=== PATIENT | male | born 1990 | race Caucasian/White ===

== ENCOUNTER 2021-03-06 08:09 | Emergency (ER) | payer OTHER ==
[~2021-03-06] VITALS: Ht 180.3 cm; Wt 100.8 kg
[2021-03-06] MEDS ORDERED: MORPHINE SULFATE 4 MG/ML DISP.SYRIN. IV ONE (08:30)
[2021-03-06] MEDS ORDERED: IV NORMAL SALINE 1,000ML 1,000 ML IV ONE (08:30)
[2021-03-06] MEDS ORDERED: IOHEXOL 300 MG/ML 75 ML VIAL. IV ONE (08:30)
[2021-03-06] MEDS ORDERED: ONDANSETRON PF 4 MG/2 ML VIAL. IVP ONE (08:30)
--- NOTE | 2021-03-06 08:52 | PHYS DOC ---
General Adult EDM: Chief Complaint: MULTIPLE COMPLAINTS HPI: HPI: Patient is a 30-year-old male coming in for low back pain after doing a lift in his PT training yesterday. Patient states he thinks he has back over urged and is looking for a "pop". Has pain radiating down both legs. Has a history of disc disease and occasional sciatica. Also complaining of right testicular soreness. States is sensitive to touch and feels like it is a little bit swollen. Denies any dysuria, hematuria, or penile discharge. Has a history of a "infection in the tubes" of his testicle in the past. Sexually active with one partner. Denies any systemic complaints. Review of Systems: Review of Systems: All other systems within normal limits except for as noted in the HPI Current Medications: Current Meds: Current Medications Medications (Trade) Dose Ordered Sig/Yocasta Start Time Stop Time Status Last Admin Dose Admin Iohexol (Omnipaque 300 Mg/ml) 75 ml 1X ONCE 03/06/21 08:30 03/06/21 08:30 DC Morphine Sulfate (Morphine 4mg Syringe) 4 mg 1X ONCE 03/06/21 08:30 03/06/21 08:30 DC Ondansetron HCl (Zofran) 4 mg 1X ONCE 03/06/21 08:30 03/06/21 08:30 DC Sodium Chloride 1,000 ml @ 1,000 mls/hr 1X ONCE 03/06/21 08:30 03/06/21 08:30 DC Allergies: Allergies: Allergies Coded Allergies Type Severity Reaction Last Updated Verified No Known Drug Allergies 03/06/21 No Physical Exam: PE: Constitutional: Well developed, well nourished, no acute distress, non-toxic appearance. [] HENT: Normocephalic, atraumatic, bilateral external ears normal, nose normal. [] Eyes: PERRLA, conjunctiva normal, no discharge. [] Neck: No rigidity, supple, no stridor. [] Cardiovascular: Regular rate and rhythm, brisk cap refill [] Lungs & Thorax: Non labored symmetric respirations, no tachypnea or respiratory distress [] Abdomen: Soft, nondistended, no hernias palpated, normal testicular exam except for tenderness over right epididymis. No scrotal erythema or swelling Skin: Warm, dry, no erythema, no rash. [] Back: Unremarkable,, no step-off deformities, point tenderness over L4 and L5 Extremities: No deformities, range of motion grossly intact, no lower extremity edema [] Neurologic: Alert and oriented X 3, no focal deficits noted. [] Psychologic: Affect normal, judgement normal, mood normal. [] EKG: EKG: [] Radiology/Procedures: Radiology/Procedures: EXAM: Lumbar spine CT without contrast. HISTORY: Lower back pain. TECHNIQUE: Computed tomographic images of the lumbar spine were obtained without contrast. Multiplanar reformatting was performed. *One or more of the following individualized dose reduction techniques were utilized for this examination: 1. Automated exposure control. 2. Adjustment of the mA and/or kV according to patient size. 3. Use of iterative reconstruction technique. COMPARISON: None. FINDINGS: There is no listhesis. There is mild multilevel endplate remodeling.. There are multiple lower thoracic and lumbar endplate Schmorl's nodes. The large Schmorl's node is seen within the superior endplate of T12. There is no stenosis is limited or sclerotic osseous lesion. There is suspected congenital narrowing of the central canal due to shortened pedicles at the lumbar levels. The sacroiliac joints are intact. There is a ossicle along the posterior elements at S1 due to partially nonunited posterior elements, an incidental finding. There is a 1 mm nonobstructing stone within the inferior left kidney. At L1-L2, L2-L3, L3-L4 and L4-L5, there are minimal disc bulges. 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 At L5-S1, there is a suspected shallow posterior central disc protrusion superimposed on a disc bulge and endplate remodeling. There is mild left greater than right foraminal stenosis. IMPRESSION: 1. No acute osseous finding. 2. 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 There is mild left greater than right foraminal stenosis at L5-S1. 3. Punctate nonobstructing left renal stone. []EXAM: Scrotal sonogram. HISTORY: Right testicle swelling. TECHNIQUE: Mccarty scale and color Doppler sonographic imaging of the scrotum with spectral analysis was performed. COMPARISON: None. FINDINGS: The testes are normal in size and demonstrate normal symmetric blood flow. No focal testicular parenchymal lesion is seen. There is a small right hydrocele. The epididymides are unremarkable. There is no varicocele or hernia. IMPRESSION: 1. Small right hydrocele. 2. Unremarkable testes. Heart Score: C/O Chest Pain: No Risk Factors: Risk Factors: DM, Current or recent (<one month) smoker, HTN, HLP, family history of CAD, obesity. Risk Scores: Score 0 - 3: 2.5% MACE over next 6 weeks - Discharge Home Score 4 - 6: 20.3% MACE over next 6 weeks - Admit for Clinical Observation Score 7 - 10: 72.7% MACE over next 6 weeks - Early Invasive Strategies Course & Med Decision Making: Course & Med Decision Making Pertinent Labs and Imaging studies reviewed. (See chart for details) [] Dragon Disclaimer: Dragon Disclaimer: This electronic medical record was generated, in whole or in part, using a voice recognition dictation system. Departure Departure: Impression: Primary Impression: Hydrocele in adult Additional Impression: Back pain, lumbosacral Disposition: HOME / SELF CARE / HOMELESS Condition: STABLE Referrals: AVILA WEBER MD (PCP) Patient Instructions: Back Pain, Adult Scripts Ibuprofen (IBUPROFEN) 800 Mg Tablet 1 TAB PO TID PRN for PAIN for 10 Days, #30 TAB 1 Refill Prov: TERESA DSEIR MD 03/06/21 Cyclobenzaprine Hcl (CYCLOBENZAPRINE HCL) 10 Mg Tablet 1 TAB PO TID PRN for MUSCLE SPASMS for 5 Days, #15 TAB Prov: TERESA DESIR MD 03/06/21 TERESA DESIR MD Mar 06, 2021 08:52
[2021-03-06] MEDS ORDERED: KETOROLAC 60 MG/2 ML VIAL. IM ONE (09:00)
--- NOTE | 2021-03-06 09:19 | RAD ---
EXAM: Scrotal sonogram. HISTORY: Right testicle swelling. TECHNIQUE: Mccarty scale and color Doppler sonographic imaging of the scrotum with spectral analysis was performed. COMPARISON: None. FINDINGS: The testes are normal in size and demonstrate normal symmetric blood flow. No focal testicu lar parenchymal lesion is seen. There is a small right hydrocele. The epididymides are unremarkable. There is no varicocele or hernia. IMPRESSION: 1. Small right hydrocele. 2. Unremarkable testes. Electronically signed by: Arlyn Garcia MD (03/06/2021 9:16 AM) [id number]
--- NOTE | 2021-03-06 09:31 | RAD ---
EXAM: Lumbar spine CT without contrast. HISTORY: Lower back pain. TECHNIQUE: Computed tomographic images of the lumbar spine were obtained without contrast. Multiplana r reformatting was performed. *One or more of the following individualized dose reduction techniques were utilized for this examina tion: 1. Automated exposure control. 2. Adjustment of the mA and/or kV according to patient size. 3. Use of iterative reconstruction technique. COMPARISON: None. FINDINGS: There is no listhesis. There is mild multilevel endplate remodeling.. There are multiple lo wer thoracic and lumbar endplate Schmorl's nodes. The large Schmorl's node is seen within the superio r endplate of T12. There is no stenosis is limited or sclerotic osseous lesion. There is suspected co ngenital narrowing of the central canal due to shortened pedicles at the lumbar levels. The sacroilia c joints are intact. There is a ossicle along the posterior elements at S1 due to partially nonunited posterior elements, an incidental finding. There is a 1 mm nonobstructing stone within the inferior left kidney. At L1-L2, L2-L3, L3-L4 and L4-L5, there are minimal disc bulges. There is mild congenital narrowing o f the canal. At L5-S1, there is a suspected shallow posterior central disc protrusion superimposed on a disc bulge and endplate remodeling. There is mild left greater than right foraminal stenosis. IMPRESSION: 1. No acute osseous finding. 2. 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 There is mild left greater than right foraminal stenosis at L5-S1 . 3. Punctate nonobstructing left renal stone. Electronically signed by: Arlyn Garcia MD (03/06/2021 9:28 AM) [id number]
[2021-03-06 10:00] LABS: BILIRUBIN,URINE NEG (NEG); CLARITY,URINE CLEAR; COLOR,URINE YELLOW; GLUCOSE,URINE NEG (NEG)
[2021-03-06 10:01] LABS: BACTERIA,URINE 0 /HPF (0-FEW); NITRITE,URINE NEG (NEG); RBC,URINE 0 /HPF (0-2); SQUAMOUS EPITHELIAL CELL,UR OCC /LPF; UROBILINOGEN,URINE 0.2 mg/dL (0.2 mg/dL); WBC,URINE OCC /HPF (0-4)
[2021-03-06] MEDS ORDERED: CYCL-331 PO (11:58)
[2021-03-06] MEDS ORDERED: IBUP800T19 PO (11:58)
[2021-03-06 12:09] VITALS: BP 100/74
== END 2021-03-06 12:09 | disposition home or self-care (01) ==
LOC: ER 08:09
DX: N43.3 Hydrocele, unspecified (principal); M54.5 Low back pain
CPT/HCPCS: 72131; 76870; 81001; 96372; 99285; J1885

== ENCOUNTER 2021-05-25 07:36 | Emergency (ER) | payer OTHER ==
[~2021-05-25] VITALS: Ht 182.9 cm; Wt 97.7 kg
[~2021-05-25 07:36] MED LIST: CYCL-331 PO; IBUP800T19 PO
[2021-05-25] MEDS ORDERED: ONDANSETRON PF 4 MG/2 ML VIAL. IVP ONE (07:45)
[2021-05-25] MEDS ORDERED: IV NORMAL SALINE 1,000ML 1,000 ML IV ONE (07:45)
[2021-05-25] MEDS ORDERED: ONDA4TAB12 PO (08:05)
--- NOTE | 2021-05-25 08:06 | PHYS DOC ---
Past History Past Medical History: Other Additional Past Medical Histor: disc disease in back Past Surgical History: Tonsillectomy, Other Additional Past Surgical Histo: pilonidal cyst removal Alcohol Use: Rarely General Adult EDM: Chief Complaint: ABDOMINAL PAIN HPI: HPI: 30-year-old male presents with diarrhea and nausea for the last 3 days. The patient and his went out to dinner 3 days ago and the next day they both had diarrhea and general ill feeling. She recovered mostly yesterday, but the patient is still having watery diarrhea. He denies blood. He has had some intermittent nausea, but no vomiting. Low-grade fever of 99.1 with a feeling of chills. He presents today because his employer wanted him to get checked out. The patient has been vaccinated for COVID-19, Moderna injections. His spouse had the Tamir & Tamir vaccine. He denies significant abdominal pain. Review of Systems: Review of Systems: Constitutional: Chills Eyes: Denies change in visual acuity HENT: Denies nasal congestion or sore throat Respiratory: Denies cough or shortness of breath Cardiovascular: Denies chest pain or edema GI: Nausea, diarrhea. : Denies dysuria Musculoskeletal: Denies back pain or joint pain Integument: Denies rash Neurologic: Denies headache, focal weakness or sensory changes Endocrine: Denies polyuria or polydipsia Lymphatic: Denies swollen glands Psychiatric: Denies depression or anxiety Current Medications: Current Meds: Current Medications Medications (Trade) Dose Ordered Sig/Yocasta Start Time Stop Time Status Last Admin Dose Admin Ondansetron HCl (Zofran) 4 mg 1X ONCE 05/25/21 07:45 05/25/21 07:47 DC Sodium Chloride 1,000 ml @ 1,000 mls/hr 1X ONCE 05/25/21 07:45 05/25/21 08:44 Allergies: Allergies: Allergies Coded Allergies Type Severity Reaction Last Updated Verified No Known Drug Allergies 03/06/21 No Physical Exam: PE: Constitutional: Well developed, well nourished, no acute distress, non-toxic appearance. [] HENT: Normocephalic, atraumatic, bilateral external ears normal, oropharynx moist, no oral exudates, nose normal. [] Eyes: PERRLA, EOMI, conjunctiva normal, no discharge. [] Neck: Normal range of motion, no tenderness, supple, no stridor. [] Cardiovascular: Heart rate regular rhythm, no murmur [] Lungs & Thorax: Bilateral breath sounds clear to auscultation [] Abdomen: Bowel sounds normal, soft, no tenderness, no masses, no pulsatile masses. [] Skin: Warm, dry, no erythema, no rash. [] Back: No tenderness, no CVA tenderness. [] Extremities: No tenderness, no cyanosis, no clubbing, ROM intact, no edema. [] Neurologic: Alert and oriented X 3, normal motor function, normal sensory function, no focal deficits noted. [] Psychologic: Affect normal, judgement normal, mood normal. [] Current Patient Data: Vital Signs: Vital Signs Date Time Temp Pulse Resp B/P (MAP) Pulse Ox O2 Delivery O2 Flow Rate FiO2 05/25/21 07:43 98.2 77 18 139/83 96 Room Air EKG: EKG: [] Radiology/Procedures: Radiology/Procedures: [] Heart Score: C/O Chest Pain: N/A Risk Factors: Risk Factors: DM, Current or recent (<one month) smoker, HTN, HLP, family history of CAD, obesity. Risk Scores: Score 0 - 3: 2.5% MACE over next 6 weeks - Discharge Home Score 4 - 6: 20.3% MACE over next 6 weeks - Admit for Clinical Observation Score 7 - 10: 72.7% MACE over next 6 weeks - Early Invasive Strategies Course & Med Decision Making: Course & Med Decision Making Pertinent Labs and Imaging studies reviewed. (See chart for details) Based on the history, the patient most likely has a viral illness. Infectious cause from food cannot be ruled out. We will give him a liter of normal saline and 4 mg of Zofran. The patient's labs are unremarkable. I will discharge her with a prescription for Zofran. He is stable for discharge at this time. [] Dragon Disclaimer: Dragon Disclaimer: This electronic medical record was generated, in whole or in part, using a voice recognition dictation system. Departure Departure: Impression: Primary Impression: Diarrhea Qualified Codes: R19.7 - Diarrhea, unspecified Disposition: HOME / SELF CARE / HOMELESS Condition: STABLE Referrals: AVILA WEBER MD (PCP) Patient Instructions: Diarrhea, Ofrj-uv-Redd Scripts Ondansetron (ONDANSETRON ODT) 4 Mg Tab.rapdis 1 TAB PO PRN Q6-8HRS PRN for VOMITING, #16 TAB Prov: RENATO PAUL DO 05/25/21 RENATO PAUL DO May 25, 2021 08:05
[2021-05-25 08:22] LABS: BASO % 0 % (0-3); EOS # 0.1 x10^3/uL (0.0-0.7); EOS % 1 % (0-3); HEMATOCRIT 46.8 % (39.0-53.0); LYMPH # 1.4 x10^3/uL (1.0-4.8); LYMPH % 20 % (24-48); MEAN CORPUSCULAR HEMOGLOBIN 31 pg (25-35); MEAN CORPUSCULAR HGB CONC 34 g/dL (31-37); MEAN CORPUSCULAR VOLUME 90 fL (79-100); MONO # 1.1 x10^3/uL (0.0-1.1); MONO % 16 % (0-9); NEUT # 4.5 x10^3uL (1.8-7.7); NEUT % 64 % (31-73); PLATELET COUNT 240 x10^3/uL (140-400); RED CELL DISTRIBUTION WIDTH 13.3 % (11.5-14.5)
[2021-05-25 08:31] LABS: CALCIUM 8.6 mg/dL (8.5-10.1); POTASSIUM 4.7 mmol/L (3.5-5.1)
[2021-05-25 08:36] LABS: ALBUMIN/GLOBULIN RATIO 1.3 (1.0-1.7); TOTAL BILIRUBIN 0.5 mg/dL (0.2-1.0); TOTAL PROTEIN 7.1 g/dL (6.4-8.2)
[2021-05-25 08:55] VITALS: BP 127/81
== END 2021-05-25 09:08 | disposition home or self-care (01) ==
LOC: ER 07:36
DX: R19.7 Diarrhea, unspecified (principal)
CPT/HCPCS: 36415; 80053; 85025; 96361; 96374; 99283; J2405; J7030